=== PATIENT | female | born 1935 | race Caucasian/White ===

== ENCOUNTER → 2016-04-24 | Outpatient (CLI) | payer OTHER ==
--- NOTE | 2016-04-24 12:16 | MA ---
Screening Digital Mammogram With iCAD Analysis Clinical Indications: Routine screening. Technique: Standard cephalocaudal and mediolateral oblique projections were obtained. This examinatio n was processed by the iCAD computer aided detection system. Comparison: March 2015, February 2014, April 2012, November 2009, October 03, August 2007. Breast density: Type B; Scattered fibroglandular densities. Findings: CAD was reviewed. No spiculated masses, suspicious calcifications or other signs of malign marcela are identified. There has been no significant change in the appearance of either breast. Vascular calcifications are noted. Impression: Negative mammogram. BI-RADS 1. Recommendation: Routine mammographic screening in one year as long as physical [facility]. Negative mammography should not preclude additional workup of a clinically suspicious finding. The patient's information is entered into a reminder system with a target due date for her next mammo gram.
== END ==
LOC: FIMAGING 11:10
DX: Z12.31 Encounter for screening mammogram for malignant neoplasm of breast (principal)
CPT/HCPCS: G0202

== ENCOUNTER → 2016-05-13 | Outpatient (CLI) | payer OTHER ==
[~2016-05-13] MED LIST: IOPAMIDOL (ISOVUE-300) 100 ML BTL IV ONE
--- NOTE | 2016-05-13 17:21 | CT ---
CT Scan of the Abdomen and Pelvis (With Contrast) at 1310 hours History: R10.31, right lower quadrant pain, inguinal hernia. Technique: Axial computed tomographic images of the abdomen and pelvis were obtained with the unevent ful intravenous administration of 85 mL Isovue-300 contrast. Additional oral contrast given. Dose red uction techniques were utilized. CT Abdomen Findings: Lung bases: No pleural effusion. Liver: Left lobe of the liver benign 15-mm cyst. No definite solid hepatic masses. Biliary system: No obstruction. Spleen: Normal. Pancreas: Normal. Adrenals: Normal. Kidneys: No obstruction or solid masses.. Lobulated contour to the left kidney, which may represent r enal cortical scarring. No urinary tract obstruction. Abdominal Aorta: Extensive atherosclerotic plaque in the abdominal aorta and iliac arteries without a neurysm. No bowel obstruction, ascites, or significant retroperitoneal lymphadenopathy. CT Pelvis Findings: Oral contrast in the small bowel and colon. Moderate stool throughout the colon, consistent with constipation. No evidence of inguinal hernia. No diverticulitis. Right total hip arth roplasty. Grade 2 degenerative anterolisthesis at L4-L5 with severe bilateral facet arthropathy and p revious laminectomies resulting in moderate to severe bilateral neural foraminal stenosis and mild ce ntral canal stenosis. Appendix appears normal without inflammatory changes. Atrophic uterus. Severe d egenerative disk disease at T12-L1 with endplate diskogenic changes, osteophytes and disk space narro wing. Impression: 1. Constipation. 2. No CT evidence of appendicitis, abscess or bowel obstruction. 3. No evidence of inguinal hernia. 4. Atherosclerotic aorta without aneurysm. 5. Degenerative lumbar spine with L4-L5 spondylolytic
== END ==
LOC: FIMAGING 12:39
PROVIDERS: ATTEND Surgery
DX: K59.00 Constipation, unspecified (principal); I70.0 Atherosclerosis of aorta; M51.36 Other intervertebral disc degeneration, lumbar region; M43.06 Spondylolysis, lumbar region
CPT/HCPCS: 74177; Q9967

== ENCOUNTER → 2017-03-28 | Outpatient (CLI) | payer OTHER | LOC: GIMAGING 15:11 | PROVIDERS: ATTEND Nurse Practitioner Family | DX: S00.03XA Contusion of scalp, initial encounter (principal) | CPT/HCPCS: 70260-PO ==